=== PATIENT | female | born 1995 | race Caucasian/White ===

== ENCOUNTER 2017-10-07 20:24 | Emergency (ER) | payer OTHER ==
[~2017-10-07] VITALS: Ht 160 cm; Wt 61.2 kg
[2017-10-07 20:32] VITALS: Ht 160 cm; Wt 61.2 kg
[2017-10-07 20:51] VITALS: BP 112/68
== END 2017-10-07 20:51 | disposition other institution (70) ==
LOC: ED 20:24
DX: Z02.89 Encounter for other administrative examinations (principal)